=== PATIENT | male | born 1995 | race African-American/Black ===

== ENCOUNTER 2018-04-03 10:54 | Day surgery (SDC) | payer OTHER ==
[~2018-04-03 10:54] MED LIST: LIDOCAINE 1% MDV 20ML VIAL SQ
[2018-04-03] MEDS: LR 1,000 ML IV (11:27)
[2018-04-03] MEDS ORDERED: PROPOFOL 200 MG/20 ML VIAL As Ordered (12:31)
[2018-04-03] MEDS ORDERED: fentaNYL 250 MCG/5 ML INJECTION (J3010) As Ordered (12:31)
[2018-04-03] MEDS ORDERED: LIDOCAINE 2% INJ 100 MG/5 ML SDV (FOR ANES.) As Ordered (12:31)
[2018-04-03] MEDS ORDERED: MIDAZOLAM INJ 2 MG/2 ML VIAL (J2250) As Ordered (12:31)
[2018-04-03] MEDS: BACITRACIN OINT 30GM As Ordered (13:29)
[2018-04-03] MEDS ORDERED: dexameTHASONE 4 MG/ML 1ML VIAL (J1100) As Ordered ×2 (13:43)
[2018-04-03] MEDS ORDERED: KETOROLAC 60 MG/2 ML VIAL (J1885) As Ordered (13:43)
[2018-04-03] MEDS ORDERED: METOCLOPRAMIDE INJ 10MG/2ML VIAL (J2765) As Ordered (13:43)
[2018-04-03] MEDS ORDERED: ONDANSETRON 4MG/2ML VIAL (J2405) As Ordered ×2 (13:43→16:45)
[2018-04-03] MEDS ORDERED: LR 1,000 ML IV ×2 (14:30→14:45)
[2018-04-03] MEDS ORDERED: MEPERIDINE INJ 25 MG/ML VIAL (J2175) IV (14:30)
[2018-04-03] MEDS ORDERED: fentaNYL 100 MCG/2 ML INJECTION (J3010) IV (14:30)
[2018-04-03] MEDS ORDERED: METOCLOPRAMIDE INJ 10MG/2ML VIAL (J2765) IV (14:30)
[2018-04-03] MEDS: PERCOCET 5MG/325MG TAB PO ×2 (14:52→16:47)
[2018-04-03] MEDS ORDERED: PERCOCET 5MG/325MG TAB As Ordered (16:45)
[2018-04-03] MEDS: ONDANSETRON 4MG/2ML VIAL (J2405) IV (16:47)
== END 2018-04-03 17:02 | disposition home or self-care (01) ==
LOC: M SDC 10:54
DX: N48.1 Balanitis (principal)
CPT/HCPCS: 54161